=== PATIENT | male | born 1950 | race Caucasian/White ===

== ENCOUNTER 2025-02-02 15:12 | Emergency (ER) | payer MEDICARE, OTHER ==
[~2025-02-02] VITALS: Ht 177.8 cm; Wt 86.2 kg
--- NOTE | 2025-02-02 15:18 | ERN ---
ED Note History of Present Illness Stated Complaint: LEFT THUMB LACERATION Chief Complaint: Laceration/Avulsion Time Seen by MD: 15:15 Dictation: PATIENT IS HERE WITH COMPLAINTS OF A LACERATION TO THE PALMAR LEFT THUMB HE SUSTAINED TWO DAYS AGO WHILE HE WAS OUT FISHING. HE STATES THE ANCHOR CHAIN GOT CAUGHT AND PEELED OFF THE PAD OF HIS THUMB. HE STATES IT HAS BEEN BLEEDING OFF AND ON SINCE. HE DENIES ANY HISTORY OF DIABETES, LAST TETANUS SHOT WAS TWO YEARS AGO. HE DID NOT GO SEE HIS PRIMARY CARE DOCTOR. Allergies: Coded Allergies: amoxicillin (Unverified Allergy, Unknown, 02/02/25) Past Medical History RN Note Reviewed/Agreed w/PFSH: Yes Review of System Dictation CONSTITUTIONAL: NEGATIVE EXCEPT FOR HPI HEAD/FACE: NEGATIVE EXCEPT FOR HPI EENT: NEGATIVE EXCEPT FOR HPI RESPIRATORY: NEGATIVE EXCEPT FOR HPI GASTROINTESTINAL/ABDOMINAL: NEGATIVE EXCEPT FOR HPI GENITOURINARY: NEGATIVE EXCEPT FOR HPI MUSCULOSKELETAL: NEGATIVE EXCEPT FOR HPI INTEGUMENTARY: NEGATIVE EXCEPT FOR HPI LEFT THUMB LACERATION/ABRASION/AVULSION NEUROLOGICAL/PSYCH: NEGATIVE EXCEPT FOR HPI HEMATOLOGIC/LYMPHATIC: NEGATIVE EXCEPT FOR HPI ALL SYSTEMS NEGATIVE, EXCEPT NOTED ABOVE. 13 POINT REVIEW OF SYSTEMS ASSESSED AND ALL NEGATIVE EXCEPT FOR ABOVE. Initial Vital Sign VS Vital Signs Date Time Temp Pulse Resp B/P (MAP) Pulse Ox O2 Delivery O2 Flow Rate FiO2 02/02/25 15:14 98.6 84 16 155/70 97 Room Air 0 02/02/25 15:22 21 Physical Exam Dictation VITAL SIGNS REVIEWED GENERAL APPEARANCE: ALERT, ORIENTED X 3, NO ACUTE DISTRESS, WELL DEVELOPED, NOURISHED. NO PAIN HEAD AND FACE: NON-TRAUMATIC. EYES: PERRL, PINK CONJUNCTIVAS, EYELID NO TRAUMA, ANTERIOR CHAMBER WITH ARCUS SENILIS. EARS: PINNAS INTACT AND NO SIGNS OF TRAUMA OR ERYTHEMA EAR CANALS CLEAR AND NO DISCHARGE TM NO ERYTHEMA NOSE: NO DISCHARGE, NO BLEEDING. OROPHARYNX: MOUTH NORMAL, TONGUE PINK, PHARYNX CLEAR,NO ERYTHEMA, TONSILS NO EXUDATES, NO ABSCESSES NOTED, MUCOUS MEMBRANE MOIST NECK: SUPPLE, NON-TENDER, NO THYROMEGALY, NO MASSES, NO JVD, NO BRUITS BREAST:DEFERRED CHEST:NO TENDERNESS, NO CREPITUS, NO PARADOXICAL MOVEMENT, NO RETRACTIONS LUNGS:CLEAR, WELL-VENTILATED, SYMMETRIC, NO RALES, NO WHEEZING, NO RHONCHI, NO STRIDOR, GOOD BREATH SOUNDS BILATERALLY HEART: REGULAR RATE, REGULAR RHYTHM, NO MURMUR, NO GALLOPS VASCULAR: NO PERIPHERAL EDEMA, ABDOMEN: SOFT, POSITIVE BOWEL SOUNDS, NONDISTENDED, NO GUARDING, NONTENDER, NO REBOUND, NO MASSES NO HEPATOMEGALY, NO SPLENOMEGALY, NO GRIJALVA'S SIGN, NO HERNIAS. RECTAL: DEFERRED GENITAL: DEFERRED NEUROLOGICAL: NORMAL SPEECH, MOTOR FUNCTION INTACT, SENSORY FUNCTION INTACT MUSCULOSKELETAL: NECK NONTENDER, FULL RANGE OF MOTION, BACK NONTENDER, FULL RANGE OF MOTION, EXTREMITIES: NONTENDER, FULL RANGE OF MOTION SKIN: COLOR PINK, DOCUMENTING WITH A PATIENT HAS A 2 CM LACERATION TO PALMAR LEFT THUMB THAT IS GRANULATING, SKIN WAS MACERATED DUE TO DRESSING HAD BEEN LEFT ONSET SUNDAY. NO ERYTHEMA NO SWELLING LYMPHATIC: DEFERRED Results (Laboratory/Radiology) Labs Reviewed?: Yes ED Course ED Course Orders Procedure Category Date Status Time Levofloxacin 500mg PHA 02/02/25 Verified Tab (Levaquin 500mg T 15:39 Neomy PHA 02/02/25 Verified Sulf/Bacitra/Polymyxin 16:00 Vital Signs Date Time Temp Pulse Resp B/P (MAP) Pulse Ox O2 Delivery O2 Flow Rate FiO2 02/02/25 15:22 98.6 84 16 155/70 97 Room Air* 0 21 02/02/25 15:14 98.6 84 16 155/70 97 Room Air 0 1540/PATIENT WAS MADE AWARE THAT TOO LATE FOR CLOSURE AND THE LACERATION WE WILL HEAL BY SECONDARY INTENTION. HE STATES HE HAS GONE BACK TO FISHING AND WE WILL BE GOING BACK HOME TO [place] IN THE NEXT FEW DAYS. WE WILL BE TREATED PROPHYLACTICALLY FOR VIBRIO EXPOSURE DUE TO HIS FISHING AND SALT WATER. DRESSING WE WILL BE APPLIED AND PATIENT IS AWARE THAT HE WILL BE HEALING BY SECONDARY INTENTION. Medical Decision Making MDM MEDICAL DISCHARGE MAKING BASED ON EMPIRIC TREATMENT FOR POSSIBLE VIBRIO INFECTION FOR SALT WATER LACERATION TETANUS IS UP TO DATE, LAST TETANUS TWO YEARS AGO DRESSING WAS APPLIED WITH TRIPLE ANTIBIOTIC OINTMENT. LEVAQUIN WAS INITIATED AND HE WILL BE DISCHARGED HOME. DX & DISP Disposition: Discharge Departure Impression: Primary Impression: Laceration of left thumb Condition: Stable Scripts Levofloxacin (Levofloxacin) 500 Mg Tablet 1 TAB PO DAILY for 7 Days, #7 TAB 0 Refills Prov: CASSIDY CRUZ FIELD LOGISTICS COORDINATOR 02/02/25 Mupirocin (Bactroban 2% Oint) 2 % Oint 1 APPL TP TID for 5 Days, #15 GM 0 Refills apply to affected area(s) Prov: CASSIDY CRUZ NP 02/02/25 Additional Instructions: FOLLOW-UP WITH PRIMARY CARE PROVIDER IN 1 TO 2 DAYS. TAKE MEDICATIONS DIRECTED HERE IN THE EMERGENCY ROOM. OKAY TO CONTINUE HOME MEDICATIONS UNLESS OTHERWISE DISCUSSED DURING YOUR VISIT IN THE EMERGENCY ROOM TODAY. RETURN TO YOUR NEAREST EMERGENCY ROOM IF SYMPTOMS WORSEN OR IF THERE IS NO IMPROVEMENT. CALL 911 IF YOU NEED IMMEDIATE ASSISTANCE. TAKE TYLENOL OR MOTRIN OVER-THE- COUNTER NEEDED AND IF NO CONTRAINDICATIONS ARE PRESENT. INCREASE ORAL HYDRATION. A WOUND CULTURE OR URINE CULTURE WAS ORDERED HERE IN THE EMERGENCY ROOM DEPARTMENT PLEASE FOLLOW-UP WITH PRIMARY CARE PROVIDER AND ADVISE THEM TO GET REPEAT PORTS FROM OUR FACILITY. IF YOU HAD ANY FELICIA WRAP/SPLINTS THAT WERE APPLIED HERE, PLEASE DO NOT REMOVE THEM UNTIL YOU SEE YOUR PRIMARY CARE OR SPECIALTY. APPLY BACTROBAN OINTMENT 3 TIMES A DAY FOR FIVE DAYS WITH BAND-AID TO LACERATION REPAIR TAKE ANTIBIOTICS DIRECTED UNTIL GONE. KEEP LACERATION REPAIR CLEAN AND DRY. FOLLOW UP WITH YOUR DOCTOR SOON POSSIBLE Time of Disposition: 15:44 I have reviewed the case, and I agree with, Diagnosis and Plan CASSIDY CRUZ NP Feb 02, 2025 15:18
[2025-02-02] MEDS ORDERED: LEVO-70 PO (15:45)
[2025-02-02] MEDS ORDERED: MUPI22O TP (15:45)
[2025-02-02] MEDS: NEOMY SULF/BACITRA/POLYMYXIN B 1 EACH PACKET TP ONE (15:50)
[2025-02-02] MEDS: levoFLOXacin 500 MG TABLET PO STA (15:50)
--- NOTE | 2025-02-02 16:01 | NUR ---
WOUND CARE DONE O LEFT THUMB, CLEANED WITH WOUND TIRE FABRICATOR. TRIPLE ANTIBIOTIC APPLIED. NON-ADHERENT BANDAGE APPLIED, WRAPPED WITH KERLIX. WOUND CARE INSTRUCTIONS GIVEN.
[2025-02-02 16:02] VITALS: BP 142/69; PULSE 84; RESP 16; TEMP 98.6; O2SAT 97
== END 2025-02-02 16:06 | disposition home or self-care (01) ==
LOC: EDH 15:12
DX: S61.012A Laceration without foreign body of left thumb without damage to nail, initial encounter (principal); Z88.0 Allergy status to penicillin; W22.8XXA Striking against or struck by other objects, initial encounter; Y93.89 Activity, other specified; Y92.89 Other specified places as the place of occurrence of the external cause; Y99.8 Other external cause status
CPT/HCPCS: 99283